=== PATIENT | female | born 1965 | race Caucasian/White ===

== ENCOUNTER 2016-07-23 11:04 | Emergency (ER) | payer MEDICAID ==
[~2016-07-23] VITALS: Ht 157.5 cm; Wt 89.9 kg
[2016-07-23 11:05] VITALS: BP 100/69
[2016-07-23] MEDS ORDERED: HYDROcodone/APAP 5/325 TABLET PO ONE (11:30)
[2016-07-23] MEDS ORDERED: HYDROcodone/APAP 5/325 TABLET ONE (11:38)
== END 2016-07-23 12:06 | disposition home or self-care (01) ==
LOC: ED 12:00
DX: S20.211A Contusion of right front wall of thorax, initial encounter (principal); G43.909 Migraine, unspecified, not intractable, without status migrainosus; Z98.51 Tubal ligation status; W01.0XXA Fall on same level from slipping, tripping and stumbling without subsequent striking against object, initial encounter; Y93.89 Activity, other specified; Y92.009 Unspecified place in unspecified non-institutional (private) residence as the place of occurrence of the external cause; Y99.8 Other external cause status
CPT/HCPCS: 99284

== ENCOUNTER 2016-10-03 16:16 | Emergency (ER) | payer MEDICAID ==
[~2016-10-03] VITALS: Ht 165.1 cm; Wt 92.7 kg
[2016-10-03 16:22] VITALS: BP 126/77
[2016-10-03] MEDS ORDERED: DIPH,PERTUSS(ACELL),TET VAC/PF 0.5 ML IM-VACC ONE ×2 (17:00→17:13)
[2016-10-03] MEDS ORDERED: LIDOCAINE 1%, 20ML SQ ONE (17:00)
[2016-10-03] MEDS ORDERED: LIDOCAINE 1%, 20ML ONE (17:13)
== END 2016-10-03 19:43 | disposition home or self-care (01) ==
LOC: ED 19:00
DX: L03.012 Cellulitis of left finger (principal); Z88.6 Allergy status to analgesic agent
CPT/HCPCS: 10060; 99283; J3490

== ENCOUNTER 2016-10-27 03:23 | Emergency (ER) | payer MEDICAID ==
[~2016-10-27] VITALS: Ht 167.6 cm; Wt 92.7 kg
[2016-10-27] MEDS ORDERED: IBUPROFEN 200 MG TABLET ONE (03:59)
[2016-10-27] MEDS ORDERED: DIPHENHYDRAMINE 25 MG CAPSULE ONE (03:59)
[2016-10-27] MEDS ORDERED: PROCHLORPERAZINE 10MG TABLET PO ONE (04:00)
[2016-10-27] MEDS ORDERED: DIPHENHYDRAMINE 25 MG CAPSULE PO ONE (04:00)
[2016-10-27] MEDS ORDERED: IBUPROFEN 200 MG TABLET PO ONE (04:00)
[2016-10-27 04:44] VITALS: BP 120/78
== END 2016-10-27 04:46 | disposition home or self-care (01) ==
LOC: ED 04:04
DX: G43.019 Migraine without aura, intractable, without status migrainosus (principal); Z72.9 Problem related to lifestyle, unspecified; G40.909 Epilepsy, unspecified, not intractable, without status epilepticus
CPT/HCPCS: 99284; Q0163; Q0164

== ENCOUNTER 2017-04-04 19:54 | Emergency (ER) | payer MEDICAID ==
[~2017-04-04] VITALS: Ht 167.6 cm; Wt 94.0 kg
[2017-04-04 19:57] VITALS: BP 121/81
== END 2017-04-04 21:20 | disposition home or self-care (01) ==
LOC: ED 21:05
DX: J20.8 Acute bronchitis due to other specified organisms (principal); J00 Acute nasopharyngitis [common cold]; B96.89 Other specified bacterial agents as the cause of diseases classified elsewhere; B97.89 Other viral agents as the cause of diseases classified elsewhere; G43.909 Migraine, unspecified, not intractable, without status migrainosus; Z98.51 Tubal ligation status; Z88.6 Allergy status to analgesic agent
CPT/HCPCS: 71046; 99284

== ENCOUNTER 2017-10-04 23:41 | Emergency (ER) | payer MEDICAID ==
[~2017-10-04] VITALS: Ht 167.6 cm; Wt 95.0 kg
[2017-10-04 23:49] VITALS: BP 117/80
[2017-10-05] MEDS ORDERED: ERYTHROMYCIN OPHTH 0.5%, 1GM RIGHTEYE ONE (00:30)
== END 2017-10-05 00:59 | disposition home or self-care (01) ==
LOC: ED 23:59
DX: B30.1 Conjunctivitis due to adenovirus (principal)
CPT/HCPCS: 99282

== ENCOUNTER 2017-10-09 18:41 | Emergency (ER) | payer MEDICAID ==
[~2017-10-09] VITALS: Ht 165.1 cm; Wt 97.6 kg
[2017-10-09 18:47] VITALS: BP 125/75
== END 2017-10-09 21:25 | disposition home or self-care (01) ==
LOC: ED 20:40
DX: S93.401A Sprain of unspecified ligament of right ankle, initial encounter (principal); S93.601A Unspecified sprain of right foot, initial encounter; W01.0XXA Fall on same level from slipping, tripping and stumbling without subsequent striking against object, initial encounter; Y93.89 Activity, other specified; Y92.89 Other specified places as the place of occurrence of the external cause; Y99.8 Other external cause status
CPT/HCPCS: 99284

== ENCOUNTER 2017-10-20 14:02 | Emergency (ER) | payer MEDICAID ==
[~2017-10-20] VITALS: Ht 167.6 cm; Wt 207.8 kg
[2017-10-20 14:19] VITALS: BP 116/71
[2017-10-20] MEDS ORDERED: KETOROLAC 30 MG/1 ML ONE (15:40)
[2017-10-20] MEDS ORDERED: KETOROLAC 30 MG/1 ML IM ONE (16:00)
[2017-10-20] MEDS ORDERED: NAPROXEN 500 MG TABLET PO ONE (16:00)
== END 2017-10-20 15:46 ==
LOC: ED 14:45
DX: S16.1XXA Strain of muscle, fascia and tendon at neck level, initial encounter (principal); M54.9 Dorsalgia, unspecified; G40.909 Epilepsy, unspecified, not intractable, without status epilepticus; G43.909 Migraine, unspecified, not intractable, without status migrainosus; Z79.82 Long term (current) use of aspirin; X58.XXXA Exposure to other specified factors, initial encounter; Y93.89 Activity, other specified; Y92.89 Other specified places as the place of occurrence of the external cause; Y99.8 Other external cause status
CPT/HCPCS: 72050; 96372; 99284; J1885

== ENCOUNTER 2017-10-22 20:56 | Emergency (ER) | payer MEDICAID ==
[~2017-10-22] VITALS: Ht 167.6 cm; Wt 95.8 kg
[2017-10-22 20:57] VITALS: BP 128/79
[2017-10-22] MEDS ORDERED: KETOROLAC 30 MG/1 ML IM ONE (21:30)
[2017-10-22] MEDS ORDERED: KETOROLAC 30 MG/1 ML ONE (21:35)
== END 2017-10-22 22:04 | disposition home or self-care (01) ==
LOC: ED 22:02
DX: M19.90 Unspecified osteoarthritis, unspecified site (principal); M54.2 Cervicalgia; M48.02 Spinal stenosis, cervical region; M54.12 Radiculopathy, cervical region; G43.909 Migraine, unspecified, not intractable, without status migrainosus; G40.909 Epilepsy, unspecified, not intractable, without status epilepticus
CPT/HCPCS: 72125; 96372; 99284; J1885

== ENCOUNTER 2018-08-14 21:48 | Emergency (ER) | payer MEDICAID ==
[~2018-08-14] VITALS: Ht 170.2 cm; Wt 95.5 kg
[2018-08-14 21:49] VITALS: BP 125/76
--- NOTE | 2018-08-14 22:51 | NUR ---
Patient/Caregiver given discharge instructions and they have confirmed that they understand the instructions. Patient ambulatory with steady gait.
== END 2018-08-14 23:00 | disposition home or self-care (01) ==
LOC: ED 22:49
DX: B34.9 Viral infection, unspecified (principal); G43.909 Migraine, unspecified, not intractable, without status migrainosus; Z72.9 Problem related to lifestyle, unspecified
CPT/HCPCS: 99283

== ENCOUNTER 2018-08-26 14:25 | Emergency (ER) | payer MEDICAID ==
[~2018-08-26] VITALS: Ht 167.6 cm; Wt 95.3 kg
[2018-08-26 14:41] VITALS: BP 121/73
--- NOTE | 2018-08-26 16:17 | NUR ---
PT TO ROOM FROM LOBBY
== END 2018-08-26 17:01 | disposition home or self-care (01) ==
LOC: ED 16:35
DX: H10.31 Unspecified acute conjunctivitis, right eye (principal); H66.001 Acute suppurative otitis media without spontaneous rupture of ear drum, right ear
CPT/HCPCS: 87081; 87880; 99283

== ENCOUNTER 2018-09-04 19:35 | Emergency (ER) | payer MEDICAID ==
[2018-09-04 19:53] VITALS: BP 121/74
[2018-09-04] MEDS ORDERED: CIPROFLOXACIN DEXAMETHASONE EAR SUSP 7.5ML RIGHT EAR ONE (20:30)
[2018-09-04] MEDS ORDERED: CARBAMIDE PEROXIDE EAR DROPS 6.5%, 15ML ONE (21:29)
[2018-09-04] MEDS ORDERED: CARBAMIDE PEROXIDE EAR DROPS 6.5%, 15ML LEFT EAR ONE (21:30)
== END 2018-09-04 22:18 | disposition home or self-care (01) ==
LOC: ED 21:50
DX: H61.23 Impacted cerumen, bilateral (principal); H60.11 Cellulitis of right external ear; F32.9 Major depressive disorder, single episode, unspecified; Z72.9 Problem related to lifestyle, unspecified
CPT/HCPCS: 69210; 99284

== ENCOUNTER 2018-09-29 13:10 | Emergency (ER) | payer MEDICAID ==
[~2018-09-29] VITALS: Ht 167.6 cm; Wt 95.0 kg
[2018-09-29 13:13] VITALS: BP 110/64
== END 2018-09-29 14:17 | disposition home or self-care (01) ==
LOC: ED 13:44
DX: L03.313 Cellulitis of chest wall (principal)
CPT/HCPCS: 99283

== ENCOUNTER 2019-04-11 22:41 | Emergency (ER) | payer MEDICAID ==
[2019-04-11 22:46] VITALS: BP 131/80
[2019-04-11] MEDS ORDERED: ACETAMINOPHEN 500 MG TABLET ONE (22:59)
[2019-04-11] MEDS ORDERED: ACETAMINOPHEN 500 MG TABLET PO ONE (23:00)
[2019-04-12 00:07] LABS: RAPID INFLUENZA A POSITIVE (Negative); RAPID INFLUENZA B Negative (Negative)
[2019-04-12] MEDS ORDERED: OSELTAMIVIR 75 MG CAPSULE ONE (00:17)
[2019-04-12] MEDS ORDERED: PLEASE ENTER HEIGHT AND WEIGHT MC SCH (00:30)
[2019-04-12] MEDS ORDERED: OSELTAMIVIR 75 MG CAPSULE PO ONE (00:30)
== END 2019-04-12 00:27 | disposition home or self-care (01) ==
LOC: ED 23:14
DX: J10.1 Influenza due to other identified influenza virus with other respiratory manifestations (principal); G43.909 Migraine, unspecified, not intractable, without status migrainosus
CPT/HCPCS: 71046; 87400; 99284

== ENCOUNTER 2019-06-01 21:15 | Emergency (ER) | payer MEDICAID ==
[~2019-06-01] VITALS: Ht 167.6 cm; Wt 97.3 kg
[2019-06-01 21:19] VITALS: BP 147/79
== END 2019-06-01 22:28 | disposition home or self-care (01) ==
LOC: ED 21:57
DX: S76.912A Strain of unspecified muscles, fascia and tendons at thigh level, left thigh, initial encounter (principal); W01.0XXA Fall on same level from slipping, tripping and stumbling without subsequent striking against object, initial encounter; Y93.G1 Activity, food preparation and clean up; Y92.098 Other place in other non-institutional residence as the place of occurrence of the external cause; Y99.8 Other external cause status
CPT/HCPCS: 99283

== ENCOUNTER 2019-09-04 15:09 | Emergency (ER) | payer MEDICAID ==
[~2019-09-04] VITALS: Ht 165.1 cm; Wt 98.6 kg
[2019-09-04 15:18] VITALS: BP 142/67
[2019-09-04] MEDS ORDERED: MAALOX/HYOSCYAMINE/LIDOCAINE 45 ML BTL PO ONE (15:30)
--- NOTE | 2019-09-04 16:13 | NUR ---
AIRPORT CLERK: PT WALKED BACK FROM LOBBY TO ROOM AT THIS TIME.
[2019-09-04 16:15] LABS: BASOPHILS # (AUTO) 0.05 x10^3/uL (0-0.1); BASOPHILS % (AUTO) 1 % (0-1); EOSINOPHILS # (AUTO) 0.18 x10^3/uL (0-0.4); EOSINOPHILS % (AUTO) 2 % (1-7); LYMPHOCYTES # (AUTO) 2.44 x10^3/uL (1-3.4); LYMPHOCYTES % (AUTO) 32 % (22-44); MD NO; MEAN CORPUSCULAR HEMOGLOBIN 29.8 pg (27.0-34.8); MEAN CORPUSCULAR HGB CONC 33.2 g/dL (32.4-35.8); MEAN CORPUSCULAR VOLUME 89.9 fL (80-100); MEAN PLATELET VOLUME 8.6 fL (7.4-10.4); MONOCYTES # (AUTO) 0.35 x10^3/uL (0.2-0.8); MONOCYTES % (AUTO) 5 % (2-9); NEUTROPHILS % (AUTO) 61 % (42-75); PLATELET COUNT 294 x10^3/uL (130-400); RED CELL DISTRIBUTION WIDTH 13.9 % (9.6-15.2)
[2019-09-04 16:16] LABS: ALBUMIN 3.6 g/dL (3.4-5.0); ANION GAP 8 mmol/L (5-15); CALCIUM 8.7 mg/dL (8.5-10.1); CHLORIDE 106 mmol/L (98-107)
[2019-09-04 16:21] LABS: ALANINE AMINOTRANSFERASE 46 U/L (12-78); ALKALINE PHOSPHATASE 96 U/L (45-117); BILIRUBIN,TOTAL 0.4 mg/dL (0.2-1.0); CREATININE 0.88 mg/dL (0.55-1.02); TOTAL PROTEIN 8.1 g/dL (6.4-8.2); TROPONIN I < 0.015 ng/mL (0.000-0.045)
[2019-09-04] MEDS ORDERED: MAALOX/HYOSCYAMINE/LIDOCAINE 45 ML BTL ONE (16:29)
--- NOTE | 2019-09-04 16:35 | NUR ---
PT BIB P/V FOR EPIGASTRIC PAIN FOR 4 DAYS WORSE WITH BREATHING AND MOVING PER PT. PT ON MONITOR. PT MEDICATED ORDERED. CHART UP FOR MD RECHECK. PT AWARE. REPORT TO ELIEZER BROWN.
--- NOTE | 2019-09-04 18:32 | NUR ---
Patient/Caregiver given discharge instructions and they have confirmed that they understand the instructions. Patient ambulatory with steady gait.
== END 2019-09-04 18:33 | disposition home or self-care (01) ==
LOC: ED 18:27
DX: R07.89 Other chest pain (principal); R10.9 Unspecified abdominal pain
CPT/HCPCS: 36415; 71045; 80053; 83690; 84484; 85025; 93005; 99285

== ENCOUNTER 2019-11-19 21:59 | Emergency (ER) | payer MEDICAID ==
[~2019-11-19] VITALS: Ht 165.1 cm; Wt 101.2 kg
[2019-11-19] MEDS ORDERED: CYCLOBENZAPRINE 10 MG TABLET ONE (22:19)
[2019-11-19] MEDS ORDERED: CYCLOBENZAPRINE 10 MG TABLET PO ONE (22:30)
[2019-11-19] MEDS ORDERED: KETOROLAC 30 MG/1 ML IM ONE (23:30)
[2019-11-19] MEDS ORDERED: KETOROLAC 60 MG/2 ML ONE (23:30)
[2019-11-19 23:48] VITALS: BP 126/78
== END 2019-11-19 23:50 | disposition home or self-care (01) ==
LOC: ED 22:59
DX: S39.012A Strain of muscle, fascia and tendon of lower back, initial encounter (principal); W01.0XXA Fall on same level from slipping, tripping and stumbling without subsequent striking against object, initial encounter; Y93.89 Activity, other specified; Y92.89 Other specified places as the place of occurrence of the external cause; Y99.8 Other external cause status
CPT/HCPCS: 72110; 96372; 99283; J1885

== ENCOUNTER 2020-02-26 07:38 | Emergency (ER) | payer MEDICAID ==
[~2020-02-26] VITALS: Ht 160 cm; Wt 98.3 kg
[2020-02-26] MEDS ORDERED: SODIUM CHLORIDE FLUSH 10ML SYR IVF ONE (08:00)
[2020-02-26] MEDS ORDERED: SODIUM CHLORIDE 0.9% 1,000ML IVBOLUS ONE (08:00)
[2020-02-26] MEDS ORDERED: MAALOX/HYOSCYAMINE/LIDOCAINE 45 ML BTL PO ONE (08:00)
[2020-02-26] MEDS ORDERED: FAMOTIDINE 20 MG/2 ML IV ONE (08:00)
[2020-02-26] MEDS ORDERED: ONDANSETRON 2MG/ML, 2ML IVPush ONE (08:00)
[2020-02-26] MEDS ORDERED: MAALOX/HYOSCYAMINE/LIDOCAINE 45 ML BTL ONE (08:09)
[2020-02-26] MEDS ORDERED: ONDANSETRON 2MG/ML, 2ML ONE (08:09)
[2020-02-26] MEDS ORDERED: FAMOTIDINE 20 MG/2 ML ONE (08:10)
--- NOTE | 2020-02-26 08:18 | NUR ---
PT REFUSING IV FLUIDS, PT STATES SHES WORRIED IT WILL MAKE HER FEEL WORSE. PT EDUCATED THAT IT WOULD NOT, STILL REFUSING. ANGELES KHOURY UPDATED.
[2020-02-26 08:20] LABS: BASOPHILS % (AUTO) 1 % (0-1); EOSINOPHILS % (AUTO) 1 % (1-7); LYMPHOCYTES % (AUTO) 8 % (22-44); MEAN CORPUSCULAR HEMOGLOBIN 30.8 pg (27.0-34.8); MEAN CORPUSCULAR HGB CONC 34.5 g/dL (32.4-35.8); MEAN PLATELET VOLUME 8.4 fL (7.4-10.4); MONOCYTES % (AUTO) 5 % (2-9); NEUTROPHILS % (AUTO) 86 % (42-75); PLATELET COUNT 268 x10^3/uL (130-400); RED BLOOD COUNT 5.26 x10^6/uL (3.82-5.3); RED CELL DISTRIBUTION WIDTH 13.9 % (9.6-15.2)
--- NOTE | 2020-02-26 08:21 | NUR ---
THIS IS A 54 YO F W/ C/O N/V/D SINCE LAST NIGHT. PT CONCERNED SHE HAS COVID. PT VERY ANXIOUS ABOUT IV START AND LAB DRAW. PT EDUCATED ON ED PROCESS. W/ REASSURANCE PT ALLOWED THIS RN TO START IV. LABS DRAWN AND SENT TO LAB. PT MEDICATED PER EMAR. PT RESTING ON GURNEY W/ CALL LIGHT IN REACH AND SIDE RAILS UPX2. PT TACHYCARDIC, OTHER VS WDL. PT DENIES FURTHER NEEDS AT THIS TIME.
[2020-02-26 08:28] LABS: ALANINE AMINOTRANSFERASE 57 U/L (12-78); ALBUMIN 3.8 g/dL (3.4-5.0); ANION GAP 6 mmol/L (5-15); CALCIUM 9.1 mg/dL (8.5-10.1); CHLORIDE 110 mmol/L (98-107); CREATININE 0.86 mg/dL (0.55-1.02)
[2020-02-26 08:30] LABS: ALKALINE PHOSPHATASE 117 U/L (45-117); BILIRUBIN,TOTAL 0.5 mg/dL (0.2-1.0); TOTAL PROTEIN 8.6 g/dL (6.4-8.2)
--- NOTE | 2020-02-26 08:52 | NUR ---
PT PROVIDED W/ WATER FOR PO CHALLENGE.
[2020-02-26 08:58] VITALS: BP 132/87
--- NOTE | 2020-02-26 09:08 | NUR ---
PT TOLERATING PO FLUIDS, REPORTS RELIEF OF NAUSEA W/ MEDS.
--- NOTE | 2020-02-26 09:19 | NUR ---
Patient given discharge instructions and they have confirmed that they understand the instructions. Patient ambulatory with steady gait.
[2020-02-26 09:25] LABS: MD SCAN
== END 2020-02-26 09:20 | disposition home or self-care (01) ==
LOC: ED 08:30
DX: R11.2 Nausea with vomiting, unspecified (principal); R19.7 Diarrhea, unspecified; R10.12 Left upper quadrant pain; G40.909 Epilepsy, unspecified, not intractable, without status epilepticus
CPT/HCPCS: 36415; 80053; 83690; 85025; 96374; 96375; 99284; J2405

== ENCOUNTER 2020-06-23 11:50 | Emergency (ER) | payer MEDICAID ==
[~2020-06-23] VITALS: Ht 167.6 cm; Wt 98.5 kg
--- NOTE | 2020-06-23 12:52 | NUR ---
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
--- NOTE | 2020-06-23 13:04 | NUR ---
PT C/O 2 BUMPS ON HER LOWER LIP THAT STARTE DTHIS AM. PAIN STATES NO PAIN, JUST STINGS. PT HAS NO OTHER PHYSICAL COMPLAINTS AT THIS TIME.
[2020-06-23 13:57] VITALS: BP 110/61
--- NOTE | 2020-06-23 14:06 | NUR ---
PT REC'VD DISCHARGE INSTRUCTIONS AND EDUCATION. PT HAD NO FURTHER QUESTIONS. PT AMBULATED TO DC AREA, STEADY GAIT.
== END 2020-06-23 14:09 | disposition home or self-care (01) ==
LOC: ED 14:00
DX: R23.8 Other skin changes (principal); Z79.82 Long term (current) use of aspirin
CPT/HCPCS: 99283

== ENCOUNTER 2020-07-08 13:14 | Emergency (ER) | payer MEDICAID ==
[~2020-07-08] VITALS: Ht 170.2 cm; Wt 98.7 kg
--- NOTE | 2020-07-08 13:33 | NUR ---
THIS IS A 55 YO F W/ C/O LT HAND/WRIST PAIN S/P GLF. PT DENIES LOC/HITTING HEAD/BLOOD THINNERS. PT REPORTS PAIN WORSE W/ MOVEMENT. VSNADN. HILDA Stinson AT BEDSIDE.
[2020-07-08] MEDS ORDERED: KETOROLAC 30 MG/1 ML ONE (13:39)
--- NOTE | 2020-07-08 13:41 | NUR ---
PT DECLINED TORADOL D/T NOT WANTING IM INJ.
--- NOTE | 2020-07-08 13:44 | NUR ---
PT AMBULATORY TO RAD W/ A STEADY GAIT.
[2020-07-08] MEDS ORDERED: KETOROLAC 30 MG/1 ML IM ONE (14:00)
[2020-07-08 14:19] VITALS: BP 101/62
--- NOTE | 2020-07-08 14:25 | NUR ---
PT REC'VD DISCHARGE INSTRUCTIONS AND EDUCATION. PT HAD NO FURTHER QUESTIONS. PT AMBULATED TO DC AREA, STEADY GAIT.
== END 2020-07-08 14:27 | disposition home or self-care (01) ==
LOC: ED 13:20
DX: S63.501A Unspecified sprain of right wrist, initial encounter (principal); G89.29 Other chronic pain; G43.909 Migraine, unspecified, not intractable, without status migrainosus; W01.0XXA Fall on same level from slipping, tripping and stumbling without subsequent striking against object, initial encounter; Y93.89 Activity, other specified; Y92.009 Unspecified place in unspecified non-institutional (private) residence as the place of occurrence of the external cause; Y99.8 Other external cause status
CPT/HCPCS: 29125; 99283

== ENCOUNTER 2020-11-08 07:24 | Emergency (ER) | payer MEDICAID ==
[~2020-11-08] VITALS: Ht 162.6 cm; Wt 98.6 kg
--- NOTE | 2020-11-08 08:04 | NUR ---
URINE COLLECTED/WALKED TO LAB. PT REPORTS BILATERAL FLANK PAIN, INCREASED URINATION. STATES HX OF BACK PAIN BUT THIS FEELS DIFFERENT. PT ALSO REPORTS COUGH, AND SOME RIB PAIN WITH COUGH. VSS. CALL LIGHT WITHIN REACH. RESP ISO CART AND SIGNAGE AT DOORWAY.
[2020-11-08 08:17] LABS: MICROSCOPIC INDICATED
[2020-11-08] MEDS ORDERED: IBUPROFEN 200 MG TABLET ONE (08:23)
[2020-11-08] MEDS ORDERED: IBUPROFEN 200 MG TABLET PO ONE (08:30)
--- NOTE | 2020-11-08 08:31 | NUR ---
PT MEDICATED PER ERP ORDER FOR MILD BACK AND RIB PAIN. PT SWABBED FOR COVID, SPECIMEN WALKED TO LAB.
--- NOTE | 2020-11-08 09:37 | NUR ---
ALL RESULTS BACK,PT FOR RECHECK.
[2020-11-08 10:13] VITALS: BP 128/68
== END 2020-11-08 10:17 | disposition home or self-care (01) ==
LOC: ED 08:09
DX: U07.1 COVID-19 (principal); M54.5 Low back pain; J00 Acute nasopharyngitis [common cold]; G40.909 Epilepsy, unspecified, not intractable, without status epilepticus
CPT/HCPCS: 71045; 81001; 87086; 99284; U0003; U0005

== ENCOUNTER 2020-11-14 17:54 | Emergency (ER) | payer MEDICAID ==
[~2020-11-14] VITALS: Ht 162.6 cm; Wt 97.1 kg
[2020-11-14 18:38] VITALS: BP 121/69
[2020-11-14] MEDS ORDERED: ACETAMINOPHEN 500 MG TABLET ONE (18:42)
[2020-11-14] MEDS ORDERED: ONDANSETRON ODT 4 MG ONE (18:42)
== END 2020-11-14 18:50 | disposition home or self-care (01) ==
LOC: ED 17:54
DX: B34.9 Viral infection, unspecified (principal); G43.C0 Periodic headache syndromes in child or adult, not intractable; R11.2 Nausea with vomiting, unspecified; G40.909 Epilepsy, unspecified, not intractable, without status epilepticus; G89.29 Other chronic pain
CPT/HCPCS: 99283